=== PATIENT | female | born 1955 | race Caucasian/White ===

== ENCOUNTER 2019-02-25 15:49 | Emergency (ER) | payer OTHER ==
[~2019-02-25] VITALS: Ht 170.2 cm; Wt 98.0 kg
--- OUTSIDE RECORDS SUMMARY | ~2019-02-25 | XMS | Clinical Summary ---
Demographics + + + | Address | [address] | | | [place] [address] | + + + | Home Phone | | + + + | Preferred Language | Unknown | + + + | Marital Status | | + + + | Orthodox Affiliation | Unknown | + + + | Race | Unknown | + + + | Ethnic Group | Unknown | + + + Author + + + | Author | [facility] | | | and [place] | + + + | Organization | [facility] | | | and [place] | + + + | Address | Unknown | + + + | Phone | Unavailable | + + + Care Team Providers + +------+ + | Care Splitting Machine Feeder Name | Role | Phone | + +------+ + | Rosalina Anderson | PCP | | | REFINERY OPERATOR REFORMING UNIT | | | + +------+ + Allergies + + + + + + | Active Allergy | Reactions | Severity | Noted | Comments | | | | | Date | | + + + + + + | Benzonatate | Other (See Comments) | | 12/28/19 | Severe headache | | | | | 15 | and pressure | + + + + + + | Codeine | Nausea Only | | 12/28/19 | Cold sweats | | | | | 15 | | + + + + + + | Penicillins | Other (See Comments) | | 12/28/19 | Welts, severe | | | | | 15 | headaches and | | | | | | pressure | + + + + + + Medications + + + +---------+------+------+-------+ | Medication | Sig | Dispensed | Refills | Star | End | Statu | | | | | | t | Date | s | | | | | | Date | | | + + + +---------+------+------+-------+ | | Take 25 mg by mouth | | 0 | | | Activ | | hydrochlorothiazide | Daily as needed. | | | | | e | | 25 mg tablet | | | | | | | + + + +---------+------+------+-------+ | citalopram | Take 20 mg by mouth | | 0 | | | Activ | | (CELEXA) 20 mg | Daily. | | | | | e | | tablet | | | | | | | + + + +---------+------+------+-------+ | albuterol 90 | Inhale 2 puffs into | | 0 | | | Activ | | mcg/puff inhaler | the lungs every 6 | | | | | e | | | hours as needed for | | | | | | | | Wheezing. | | | | | | + + + +---------+------+------+-------+ | lorcaserin | Take 10 mg by mouth | | 0 | | | Activ | | (BELVIQ) 10 mg | 2 times daily. | | | | | e | | tablet | | | | | | | + + + +---------+------+------+-------+ | pseudoePHEDrine | Take 30 mg by mouth | | 0 | | | Activ | | (SUDAFED) 30 mg | every 6 hours as | | | | | e | | tablet | needed. | | | | | | + + + +---------+------+------+-------+ Active Problems Not on file Social History + +-------+ +--------+------+ | Tobacco Use | Types | Packs/Day | Years | Date | | | | | Used | | + +-------+ +--------+------+ | Former Smoker | | | | | + +-------+ +--------+------+ + +---+---+---+ | Smokeless Tobacco: | | | | | Never Used | | | | + +---+---+---+ + + +---------+ + | Alcohol Use | Drinks/We | oz/Week | Comments | | | ek | | | + + +---------+ + | No | 0 | 0.0 | | | | Standard | | | | | drinks or | | | | | | | | | | equivalen | | | | | t | | | + + +---------+ + + + + | Sex Assigned at | Date Recorded | | | | + + + | Not on file | | + + + + + + + | Job Start Date | Occupation | Industry | + + + + | Not on file | Not on file | Not on file | + + + + + + + + | Travel History | Travel Start | Travel End | + + + + + + | No recent travel history available. | + + Last Filed Vital Signs Not on file Plan of Treatment + + + + + | Health Maintenance | Due Date | Last Done | Comments | + + + + + | Vaccine: | | | | | Dtap/Tdap/Td (1 - | 3 | | | | Tdap) | | | | + + + + + | Cervical Cancer | | | | | Screening (Pap) | 4 | | | + + + + + | Vaccine: Zoster (1 | | | | | of 2) | 4 | | | + + + + + | Breast Cancer | | | | | Screening | 9 | | | + + + + + | Vaccine: Influenza | | | | | (#1) | 9 | | | + + + + + Results Not on filefrom Last 3 Months Insurance +-------+--------+ +--------+-------+---------+------+ | Payer | Benefi | Subscriber | Effect | Phone | Address | Type | | | t Plan | ID | julito | | | | | | / | | Dates | | | | | | Group | | | | | | +-------+--------+ +--------+-------+---------+------+ | BCBS | BCBS | [id number] | 05/13/19 | | | PPO | | | OOS | 4 | 15-Pre | | | | | | PPO | | sent | | | | +-------+--------+ +--------+-------+---------+------+ + +--------+ +--------+ + + | Guarantor Name | Accoun | Relation to | Date | Phone | Billing Address | | | t Type | Patient | of | | | | | | | | | | + +--------+ +--------+ + + | Juana Guo | Person | Self [birth year] | [id number] | | | al/Andres | | 1955 | [phone] | [place] [address] | | | phan | | | 7 (Home) | | + +--------+ +--------+ + + Advance Directives Patient has advance care planning documents on file. For more information, please contact:[facility] [place] [address]"
--- OUTSIDE RECORDS SUMMARY | ~2019-02-25 | XMS | Clinical Summary ---
Demographics + + + | Address | [address] | | | [place] [address] | + + + | Home Phone | | + + + | Preferred Language | Unknown | + + + | Marital Status | | + + + | Taoism Affiliation | Unknown | + + + | Race | Unknown | + + + | Ethnic Group | Unknown | + + + Author + + + | Author | [facility] | | | and [place] | + + + | Organization | [facility] | | | and [place] | + + + | Address | Unknown | + + + | Phone | Unavailable | + + + Care Team Providers + +------+ + | Care Ndt Inspector Name | Role | Phone | + +------+ + | Rosalina Anderson | PCP | | | RIBBER | | | + +------+ + Allergies [...] +-------+--------+ +--------+-------+---------+------+ | BCBS | BCBS | [id number] | 05/13/19 | | | PPO | [...] Person | Self [birth year] | [id number] | | | al/[place] | | 1955 | [phone] | [place] [address] | | | phan | | | 7 (Home) | | + +--------+ +--------+ + + Advance Directives Patient has advance care planning documents on file. For more information, please contact:[facility] [address]"
[~2019-02-25 15:49] MED LIST: CELEXA20 MG PO; PROZAC20 MG PO
--- NOTE | 2019-02-25 19:16 | EKG ---
[facility] [address] [facility] [place] [address] Signed Normal sinus rhythm Normal ECG No previous ECGs available Confirmed by MIGDALIA BOWER MD ([id number]) on 02/25/2019 7:16:16 PM Electronically Signed By: MIGDALIA BOWER MD 02/25/19 1916 PATIENT NAME: KENNETHBART M Electrocardiogram DATE OF : 53 PHYSICIAN: MIGDALIA BOWER MD REPORT #: [id number] REPORT IS CONFIDENTIAL AND NOT TO BE RELEASED WITHOUT AUTHORIZATION
== END 2019-02-25 21:30 | disposition home or self-care (01) ==
LOC: ED 15:49
DX: R07.89 Other chest pain (principal); Z88.0 Allergy status to penicillin; Z88.5 Allergy status to narcotic agent
CPT/HCPCS: 71045; 80053; 83735; 84443; 84484; 85025; 85379; 93005; 93010; 99285-25

== ENCOUNTER 2019-07-13 20:13 | Emergency (ER) | payer MEDICARE, OTHER ==
[~2019-07-13] VITALS: Ht 170.2 cm; Wt 102.1 kg
--- NOTE | 2019-07-14 17:50 | EKG ---
[facility] [address] [facility] [place], [place] [address] Signed Normal sinus rhythm Normal ECG When compared with ECG of 25-FEB-2019 15:57, No significant change was found Confirmed by GOKUL SOLITARIO DO ([id number]) on 07/14/2019 5:50:01 PM Electronically Signed By: GOKUL SOLITARIO DO 07/14/19 1750 PATIENT NAME: KENNETHBART Electrocardiogram DATE OF : 53 PHYSICIAN: GOKUL SOLITARIO DO REPORT #: [id number] REPORT IS CONFIDENTIAL AND NOT TO BE RELEASED WITHOUT AUTHORIZATION
== END 2019-07-13 22:42 | disposition home or self-care (01) ==
LOC: ED 20:13
DX: R07.89 Other chest pain (principal); Z88.0 Allergy status to penicillin; Z88.5 Allergy status to narcotic agent
CPT/HCPCS: 71045; 80053; 83735; 84484; 85025; 93005; 93010; 99285-25

== ENCOUNTER 2019-08-16 09:10 | Emergency (ER) | payer MEDICARE, OTHER ==
[~2019-08-16] VITALS: Ht 170.2 cm; Wt 101.6 kg
[2019-08-16] MEDS ORDERED: TRIAMTERENE-HC1 EAC1 PO (09:22)
[2019-08-16] MEDS ORDERED: FLAGYL500 MG PO (11:27)
[2019-08-16] MEDS ORDERED: CIPRO500 MG PO (11:27)
== END 2019-08-16 11:39 | disposition home or self-care (01) ==
LOC: ED 09:10
DX: K57.32 Diverticulitis of large intestine without perforation or abscess without bleeding (principal)
CPT/HCPCS: 74177; 80053; 81001; 83690; 85025; 99284-25; Q9967

== ENCOUNTER 2021-02-11 06:45 | Emergency (ER) | payer MEDICARE ==
[~2021-02-11] VITALS: Ht 170.2 cm; Wt 101.6 kg
[~2021-02-11 06:45] MED LIST changes: +CIPRO500 MG PO; +FLAGYL500 MG PO; +TRIAMTERENE-HC1 EAC1 PO
[2021-02-11] MEDS ORDERED: ONDANSETRON ODT8 MG PO (08:33)
== END 2021-02-11 08:50 | disposition home or self-care (01) ==
LOC: ED 06:45
DX: B34.9 Viral infection, unspecified (principal); Z88.0 Allergy status to penicillin; Z88.5 Allergy status to narcotic agent; Z88.6 Allergy status to analgesic agent; Z79.899 Other long term (current) drug therapy
CPT/HCPCS: 71045; 80053; 81001; 85025; 99283-25

== ENCOUNTER 2021-08-18 05:49 | Day surgery (SDC) | payer MEDICARE ==
[~2021-08-18] VITALS: Ht 170.2 cm; Wt 106.8 kg
[~2021-08-18 05:49] MED LIST changes: +ACETAMINOPHEN500 MG PO; +CELECOXIB200 MG PO; +GABAPENTIN600 MG PO; +METRONIDAZOLE500 MG PO; +ONDANSETRON ODT8 MG PO; +OXYCODONE HCL5 MG PO; +PROZAC10 MG PO; +SENNA LAX8.6 MG PO
[2021-08-18] MEDS ORDERED: GABAPENTIN300 MG PO (05:57)
[2021-08-18] MEDS ORDERED: HYDROCODON-ACE1 EA11 PO (08:41)
--- NOTE | 2021-08-18 08:53 | NUR ---
08/18/21 0853 Kelly Buckner 0897 PT TO PAUC WITH ORAL AIRWAY IN PLACE MASK FOGGING, BREATHING UNLABORED. DRESSING CLEAN AND DRY. CRYO CUFF PLACED ON RT SHOULDER, PILLOW CASE UNDER COLD SLEEVE.
--- NOTE | 2021-08-18 09:00 | NUR ---
PATIENT REPORT RECIEVED FROM YANETH DOMINGUEZ. PATIENT BACK FROM PACU. PATIENT ASSESSMENT COMPLETE. PATIENT IS ALERT AND ORIENTED. BREATHING EQUAL AND UNLABORED. VITAL SIGNS WNL. PATIENT DENIES ANY PAIN AT THIS TIME. SURGICAL SITE IS CLEAN DRY AND INTACT. CRYO CUFF OVER SHOULDER. PATIENT IS DRINKING WATER AND EATING PUDDING. NO NASEAU. PRESENT IN ROOM. NO QUESTIONS CALL LIGHT WITHIN REACH NO FUTHER NEEDS.
--- NOTE | 2021-08-21 07:01 | OR ---
[facility] [address] [facility] [place] [address] Signed DATE OF OPERATION: 08/18/2021 SURGEON: Dread Buckner MD PREOPERATIVE DIAGNOSIS: Rotator cuff tear, right shoulder. POSTOPERATIVE DIAGNOSIS: Rotator cuff tear, right shoulder. PROCEDURE PERFORMED: Right shoulder arthroscopy with rotator cuff repair. UNHAIRER: None. ANESTHESIA: General. BLOOD LOSS: Minimal. IMPLANTS: Four 4.75 SwiveLocks with FiberTape. BRIEF HISTORY: Juana is a 66-year-old female with progressive worsening pain and weakness in her shoulder. MRI was consistent with a large rotator cuff tear. Risks and benefits of operative treatment were discussed with her and she elected to proceed. Once consent was obtained, she was taken to the operating room. After adequate anesthesia, she was placed in the operating room table. She was placed in beach chair position. All downside pressure points were well padded. The left arm was well-padded. The right arm was prepped and draped in the standard sterile fashion. Shoulder was injected with 15 mL of 0.25% Marcaine with epinephrine as was subacromial space. Standard posterior portal was made and the scope was introduced in the shoulder. ARTHROSCOPIC FINDINGS: The rotator cuff was noted to be torn from the biceps extending about 1.5 to almost 2 cm posteriorly. There was minimal retraction. There was extensive synovitis in the Electronically Signed By: DREAD BUCKNER MD 08/21/21 0701 PATIENT NAME: JUANA COOPER DIONNA OPERATIVE REPORT DATE OF : 53 REPORT #: [id number] PHYSICIAN: DREAD BUCKNER MD PCP: TAYLA DENISE REPORT IS CONFIDENTIAL AND NOT TO BE RELEASED WITHOUT AUTHORIZATION [facility] [address] [place], [place] [address] Signed shoulder. The biceps was noted to be frayed, but intact. The labrum was intact. 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 There was minimal bursitis in the subacromial bursa. DESCRIPTION OF OPERATION: Diagnostic arthroscopy was undertaken as noted above. Standard anterior portal was made using an outside-in technique as was a standard anterior lateral portal. Through both of these were debrided the tear and the synovitis in the shoulder. The scope was then withdrawn, placed in the subacromial space, a little bit of traction was added. Once we were able to accomplish this, the bursa was removed and a lateral acromioplasty was performed to allow more space. The tear was then freshened up removing necrotic tissue. Four FiberTape sutures were placed in inverted mattress configuration through the tear from front to back. These were sequentially then placed on anchors in the tuberosity from front to back. Excellent adhesion of the tissue was obtained. There was good bleeding from the bony excoriation which we did excoriate the bone with a shaver. The suture ends were cut. The shoulder was range of motion and then the repair was found to be stable. The scope was withdrawn. Portals were closed with 3-0 nylon and dressed with Allevyn dressing and OpSite. She tolerated the procedure well. All sponge, needle, and instrument counts were correct. Dread Buckner MD BA/DWAINEL /[id number] Copies: ~ Electronically Signed By: DREAD BUCKNER MD 08/21/21 0701 PATIENT NAME: JUANA COOPER OPERATIVE REPORT DATE OF : 53 REPORT #: [id number] PHYSICIAN: DREAD BUCKNER MD PCP: TAYLA DENISE REPORT IS CONFIDENTIAL AND NOT TO BE RELEASED WITHOUT AUTHORIZATION
== END 2021-08-18 10:15 | disposition home or self-care (01) ==
LOC: DS 05:49
PROVIDERS: ATTEND Specialist
PROC: 0RNJ4ZZ Release Right Shoulder Joint, Percutaneous Endoscopic Approach (ICD-10-PCS; 2021-08-18)
PROC: 0LQ14ZZ Repair Right Shoulder Tendon, Percutaneous Endoscopic Approach (ICD-10-PCS; principal; 2021-08-18 06:45)
DX: M75.101 Unspecified rotator cuff tear or rupture of right shoulder, not specified as traumatic (principal); M65.811 Other synovitis and tenosynovitis, right shoulder; M94.211 Chondromalacia, right shoulder; M75.51 Bursitis of right shoulder; Z79.01 Long term (current) use of anticoagulants
CPT/HCPCS: 01630; 64415; 76942; C1713; J0690; J1100; J2001; J2250; J2405; J2704; J2795; J7121

== ENCOUNTER 2022-09-28 07:22 | Emergency (ER) | payer MEDICARE ==
[~2022-09-28] VITALS: Ht 170.2 cm; Wt 106.6 kg
[~2022-09-28 07:22] MED LIST changes: +GABAPENTIN300 MG PO; +HYDROCODON-ACE1 EA11 PO
--- OUTSIDE RECORDS SUMMARY | 2022-09-28 07:24 | XMS ---
PreManage Notification: BART COOPER Security Molecular Biology Director Events No recent Security Events currently on file [facility] There are no care providers on record at this time. Manjula has no Care Guidelines for this patient. Miguel VISIT COUNT (12 MO.) 1 BREONNA [place]on TOTAL 1 NOTE: Visits indicate total known visits. ED/UCC VISIT TRACKING (12 MO.) 09/28/2022 07:22 [facility] [place] TYPE: Emergency COMPLAINT: - LOWER L BACK PAIN INPATIENT VISIT TRACKING (12 MO.) No inpatient visits to display in this time frame [email or web address]
[2022-09-28] MEDS ORDERED: PREDNISONE20 MG PO (08:34)
[2022-09-28 08:41] VITALS: BP 160/75
== END 2022-09-28 08:43 | disposition home or self-care (01) ==
LOC: ED 07:22
DX: S39.92XA Unspecified injury of lower back, initial encounter (principal); X58.XXXA Exposure to other specified factors, initial encounter; Z79.899 Other long term (current) drug therapy; Z88.0 Allergy status to penicillin; Z88.8 Allergy status to other drugs, medicaments and biological substances; Z88.5 Allergy status to narcotic agent
CPT/HCPCS: 72100; 99283-25; J7512

== ENCOUNTER 2023-01-24 15:02 | Emergency (ER) | payer MEDICARE ==
[~2023-01-24] VITALS: Ht 170.2 cm; Wt 102.3 kg
[~2023-01-24 15:02] MED LIST changes: +PREDNISONE20 MG PO
--- OUTSIDE RECORDS SUMMARY | 2023-01-24 15:04 | XMS ---
PreManage Notification: BART COOPER Security Mechanical Systems Engineer Events No recent Security Events currently on file CRITERIA MET - [facility] - 2 Visits in 30 Days CARE PROVIDERS There are no care providers on record at this time. Manjula has no Care Guidelines for this patient. Miguel [facility]12 MO.) [facility] T[facility] NOTE: Visits indicate total known visits. ED/C VISIT TRACKING (12 MO.) [facility]23 [facility] [place] [facility] COMPLAINT: - ABDOMINAL PAIN 01/22/2023 14:23 [facility] [place] TYPE: Emergency COMPLAINT: - L SIDE ABD PAIN 09/28/2022 07:22 [facility] [place] TYPE: Emergency COMPLAINT: - LOWER L BACK PAIN DIAGNOSES: - Allergy status to narcotic agent - Allergy status to other drugs, medicaments and biological substances - Allergy status to penicillin - Exposure to other specified factors, initial encounter - Low back pain, unspecified - Other mcc (current) drug therapy - Unspecified injury of lower back, initial encounter INPATIENT VISIT TRACKING (12 MO.) No inpatient visits to display in this time frame [email or web address]
[2023-01-24 15:39] LABS: BASOPHILS 0.8 % (0-2); EOSINOPHILS 1.6 % (0-6); HEMATOCRIT 41.5 % (35.0-50.0); HEMOGLOBIN 14.1 g/dL (12.0-18.0); MCH 28.9 (27-36); MCHC 34.1 g/dl (30-36); MCV 84.7 fl (81-99); MONOCYTES 9.7 % (0-12); NEUTROPHILS 60.9 % (39-80); PLATELET COUNT 271 K/uL (140-440); RDW 12.4 (10.5-15.0)
[2023-01-24 15:48] LABS: ALBUMIN 3.4 g/dL (3.4-5.0); ALBUMIN/GLOBULIN RATIO 0.94 (1.1-2.4); BILIRUBIN, TOTAL 0.2 ng/dL (0.2-1.0); BUN/CREATININE RATIO 20.77 (6.0-28.6); CALCIUM 8.9 mg/dL (8.5-10.1); CREATININE, SERUM 0.77 mg/dL (0.55-1.02)
[2023-01-24 16:40] LABS: BILIRUBIN, URINE NEGATIVE (negative); BLOOD/HGB, URINE SMALL (Negative); KETONE, URINE NEGATIVE (Negative); LEUK ESTERASE, URINE NEGATIVE (negative); NITRITE, URINE NEGATIVE (negative); PH, URINE 5.5 (5-7)
[2023-01-24 16:53] LABS: BACTERIA, URINE RARE /hpf (negative); CASTS, URINE NONE SEEN \\lpf; COLLECTION TYPE, URINE CLEAN CATCH; CRYSTALS, URINE NONE SEEN (0-1+); EPITHELIAL CELLS, URINE SQUAMOUS 1+ /lpf (0-1+); REFLEX CULTURE, URINE No (No)
[2023-01-24 17:11] VITALS: BP 194/93
== END 2023-01-24 17:12 | disposition home or self-care (01) ==
LOC: ED 15:02
PROVIDERS: Emergency Medicine
DX: R10.12 Left upper quadrant pain (principal); Z88.0 Allergy status to penicillin; Z88.5 Allergy status to narcotic agent; Z88.8 Allergy status to other drugs, medicaments and biological substances; Z79.899 Other long term (current) drug therapy
CPT/HCPCS: 36415; 74177; 80053; 81001; 83690; 85025; 99284-25; Q9967

== ENCOUNTER 2024-04-07 07:03 | Emergency (ER) | payer MEDICARE ==
[~2024-04-07] VITALS: Ht 170.2 cm; Wt 102.0 kg
[2024-04-07 07:44] LABS: BASOPHILS 2.6 % (0-2); EOSINOPHILS 2.2 % (0-6); HEMATOCRIT 42.8 % (35.0-50.0); HEMOGLOBIN 14.4 g/dL (12.0-18.0); MCH 29.5 (27-36); MCHC 33.8 g/dl (30-36); MCV 87.3 fl (81-99); MONOCYTES 9.8 % (0-12); NEUTROPHILS 62.4 % (39-80); PLATELET COUNT 308 K/uL (140-440); RDW 13.4 (10.5-15.0)
[2024-04-07 07:59] LABS: ALBUMIN 3.4 g/dL (3.4-5.0); ALBUMIN/GLOBULIN RATIO 0.89 (1.1-2.4); ANION GAP 11.1 (7-21); BILIRUBIN, TOTAL 0.4 ng/dL (0.2-1.0); BUN/CREATININE RATIO 18.91 (6.0-28.6); CALCIUM 8.7 mg/dL (8.5-10.1); CREATININE, SERUM 0.74 mg/dL (0.55-1.02); POTASSIUM 4.1 mmol/L (3.5-5.1); PROTEIN, TOTAL 7.2 g/dL (6.4-8.2)
[2024-04-07] MEDS ORDERED: ACETAMINOPHEN 500 MG TAB PO ONE (08:30)
[2024-04-07] MEDS ORDERED: IBUPROFEN 600 MG TAB PO ONE (08:30)
[2024-04-07 08:55] LABS: ERYTHROCYTE SEDIMENTATION RATE 11
[2024-04-07] MEDS ORDERED: KETOROLAC TROME10 MG PO (09:13)
[2024-04-07 09:22] VITALS: BP 202/98
== END 2024-04-07 09:23 | disposition home or self-care (01) ==
LOC: ED 07:03
PROVIDERS: Emergency Medicine
DX: M25.561 Pain in right knee (principal); I10 Essential (primary) hypertension; Z88.0 Allergy status to penicillin; Z88.1 Allergy status to other antibiotic agents; Z88.5 Allergy status to narcotic agent; Z88.8 Allergy status to other drugs, medicaments and biological substances
CPT/HCPCS: 36415; 73560; 80053; 85025; 85651; 86140; 99283; A9270

== ENCOUNTER 2024-05-13 11:59 | Emergency (ER) | payer MEDICARE ==
[~2024-05-13] VITALS: Ht 170.2 cm; Wt 103.9 kg
[~2024-05-13 11:59] MED LIST changes: +KETOROLAC TROME10 MG PO
[2024-05-13 12:33] LABS: BASOPHILS 1.2 % (0-2); EOSINOPHILS 0.9 % (0-6); HEMATOCRIT 41.8 % (35.0-50.0); HEMOGLOBIN 13.9 g/dL (12.0-18.0); LYMPHOCYTES 22.3 % (24-44); MCH 29.2 (27-36); MCHC 33.4 g/dl (30-36); MCV 87.5 fl (81-99); MONOCYTES 8.5 % (0-12); NEUTROPHILS 67.1 % (39-80); PLATELET COUNT 326 K/uL (140-440); RBC 4.77 M/ul (4.3-5.7); RDW 13.2 (10.5-15.0)
[2024-05-13 12:42] LABS: PARTIAL THROMBOPLASTIN TIME 32.8 Sec (22.9-41.3)
[2024-05-13 12:43] LABS: INR 0.93 (0.80-1.30); PROTIME 12.4 Sec (11.2-14.2)
[2024-05-13 12:49] LABS: ALBUMIN 3.2 g/dL (3.4-5.0); ALBUMIN/GLOBULIN RATIO 0.84 (1.1-2.4); ANION GAP 11.7 (7-21); BILIRUBIN, TOTAL 0.3 ng/dL (0.2-1.0); BUN/CREATININE RATIO 19.79 (6.0-28.6); CALCIUM 8.8 mg/dL (8.5-10.1); CREATININE, SERUM 0.96 mg/dL (0.55-1.02); POTASSIUM 3.7 mmol/L (3.5-5.1)
[2024-05-13 14:55] VITALS: BP 159/87
--- NOTE | 2024-05-13 20:37 | EKG ---
[facility] [address] [facility] [place] [address] Signed Normal sinus rhythm Normal ECG When compared with ECG of 03-MAY-2021 14:10, No significant change was found Confirmed by Rod Milner DO ([id number]) on 05/13/2024 8:37:36 PM Electronically Signed By: ROD MILNER DO 05/13/242036 PATIENT NAME: BART COOPER DIONNA Electrocardiogram DATE OF : 53 PHYSICIAN: ROD MILNER DO REPORT #: [id number] REPORT IS CONFIDENTIAL AND NOT TO BE RELEASED WITHOUT AUTHORIZATION
== END 2024-05-13 14:55 | disposition home or self-care (01) ==
LOC: ED 11:59
PROVIDERS: Emergency Medicine
DX: R20.0 Anesthesia of skin (principal); R20.2 Paresthesia of skin; I10 Essential (primary) hypertension; Z88.0 Allergy status to penicillin; Z88.5 Allergy status to narcotic agent; Z88.8 Allergy status to other drugs, medicaments and biological substances
CPT/HCPCS: 36415; 70450; 70496; 70498; 71045; 80053; 84484; 85025; 85610; 85730; 93005; 93010; 99284-25; Q3014; Q9967

== ENCOUNTER 2024-12-29 07:25 | Emergency (ER) | payer MEDICARE ==
[~2024-12-29] VITALS: Ht 170.2 cm; Wt 100.9 kg
[2024-12-29] MEDS ORDERED: ACULAR5 ML OS (09:34)
[2024-12-29 09:40] VITALS: BP 170/86
== END 2024-12-29 09:40 | disposition home or self-care (01) ==
LOC: ED 07:25
DX: H11.32 Conjunctival hemorrhage, left eye (principal); I10 Essential (primary) hypertension; Z88.0 Allergy status to penicillin; Z88.8 Allergy status to other drugs, medicaments and biological substances; Z88.5 Allergy status to narcotic agent
CPT/HCPCS: 99283